=== PATIENT | male | born 1990 | race Caucasian/White ===

== ENCOUNTER 2020-08-03 18:09 | Emergency (ER) | payer SELFPAY ==
[~2020-08-03] VITALS: Ht 180.3 cm; Wt 97.5 kg
--- NOTE | 2020-08-03 18:40 | NUR ---
ARNOLD FROM HOME TO ER BED 12. AAOX4. NOT IN RESP DISTRESS. CAME IN FOR L KNEE PAIN AND SWELLING S/P TWISTING HIS KNEES YESTERDAY. PAIN IS RATED 6/10. PEDAL PULSES ARE APPRECIATED AND EQUAL. PROVIDER WAS AT THE BEDSIDE FOR EVAL. ORDERS RECEIVED, NOTED ADN CARRIED OUT.
[2020-08-03] MEDS ORDERED: IBUP-1955 PO (19:31)
--- NOTE | 2020-08-03 19:40 | NUR ---
Patient discharged to home in stable condition. Written and verbal after care instructions given. Patient verbalizes understanding of instruction. Pt ambulatory with a steady gait
--- NOTE | 2020-08-03 19:56 | NUR ---
PROVIDER ORDERED TO PLACED A KNEE IMMOBILIZER BUT A BIG SIZE THAT WOULD FIT THE PT IS UNAVAILABLE. PROVIDER MADE AWARE. INSTRUCTED TO PUT SARI WRAP INSTEADY. NOTED AND CARRIED OUT.
[2020-08-03 19:59] VITALS: BP 134/82
== END 2020-08-03 19:59 | disposition home or self-care (01) ==
LOC: ER 18:13
DX: M25.562 Pain in left knee (principal); Z79.899 Other long term (current) drug therapy
CPT/HCPCS: 73564-TC